=== PATIENT | male | born 1980 | race Caucasian/White ===

== ENCOUNTER 2020-09-21 22:08 | Emergency (ER) | payer OTHER ==
[2020-09-21 22:46] LABS: BASOPHILS # (AUTO) 0.1 10^3/uL (0.0-0.1); BASOPHILS % (AUTO) 0.8 %; EOSINOPHILS # (AUTO) 0.2 10^3/uL (0.0-0.7); EOSINOPHILS % (AUTO) 2.8 %; HCT - HEMATOCRIT 39.8 % (42.0-52.0); HGB - HEMOGLOBIN 13.4 g/dL (14.0-18.0); LYMPHOCYTES # (AUTO) 1.8 10^3/uL (1.5-3.5); LYMPHOCYTES % (AUTO) 29.3 %; MEAN CORPUSCULAR HEMOGLOBIN 30.4 pg (27.0-31.0); MEAN CORPUSCULAR HGB CONC 33.7 g/dL (32.0-36.0); MEAN CORPUSCULAR VOLUME 90.2 fL (80.0-94.0); MEAN PLATELET VOLUME 9.4 fL (7.4-11.4); MONOCYTES # (AUTO) 0.4 10^3/uL (0.0-1.0); MONOCYTES % (AUTO) 6.4 %; NEUTROPHILS # (AUTO) 3.7 10^3/uL (1.5-6.6); NEUTROPHILS % (AUTO) 60.4 %; PLT - PLATELET COUNT 192 10^3/uL (130-450); RED BLOOD COUNT 4.41 10^6/uL (4.70-6.10); RED CELL DISTRIBUTION WIDTH 12.6 % (12.0-15.0); VBG PCO2 48.7 mmHg (41-51); VBG PH 7.381 (7.31-7.41); WHITE BLOOD COUNT 6.1 x10^3/uL (4.8-10.8)
[2020-09-21 22:47] LABS: VBG BASE EXCESS 2.3 mmol/L (-2 - +2); VBG HCO3 28.2 mmol/L (23-28); VBG OXYGEN SATURATION 47.9 % (60-80); VBG PO2 25.4 mmHg (25-47); VBG TOTAL CO2 29.7 mmol/L (24-29)
[2020-09-21] MEDS ORDERED: CHERRY SYRUP 10 ML UDC PO ONE (22:52)
[2020-09-21] MEDS ORDERED: DEXAMETHASONE 10 MG/ML VIAL PO STA (22:52)
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
[2020-09-21 23:00] LABS: ALBUMIN 4.4 g/dL (3.2-5.5); ALBUMIN/GLOBULIN RATIO 1.7 (1.0-2.2); BILIRUBIN,TOTAL 0.8 mg/dL (0.2-1.0); CALCIUM 9.7 mg/dL (8.5-10.3); CREATININE 0.9 mg/dL (0.6-1.2); POTASSIUM 4.3 mmol/L (3.5-5.0)
[2020-09-21 23:24] LABS: BILIRUBIN,URINE NEGATIVE (NEGATIVE); GLUCOSE, URINE (UA) NEGATIVE (NEGATIVE); KETONES,URINE (UA) NEGATIVE (NEGATIVE); LEUKOCYTE ESTERASE, URINE NEGATIVE (NEGATIVE); NITRITE,URINE NEGATIVE (NEGATIVE); OCCULT BLOOD,URINE TRACE-LYSE (NEGATIVE); PROTEIN,URINE NEGATIVE (NEGATIVE); UROBILINOGEN,URINE 0.2 (NORMAL) E.U./dL (NORMAL)
[2020-09-21 23:26] LABS: CLARITY,URINE CLEAR (CLEAR)
[2020-09-22 02:05] VITALS: BP 107/58
--- NOTE | 2020-09-22 08:51 | CT Report ---
PROCEDURE: HEAD WO INDICATIONS: headache, barotrauma TECHNIQUE: Noncontrast 4.5 mm thick angled axial sections acquired from the foramen magnum to the vertex. For r adiation dose reduction, the following was used: automated exposure control, adjustment of mA and/or kV according to patient size. COMPARISON: None. FINDINGS: Image quality: Excellent. CSF spaces: Basal cisterns are patent. No extra-axial fluid collections. Ventricles are normal in size and shape. Brain: No midline shift. No intracranial masses or hemorrhage. Carter-white matter interface is norm al. Skull and face: Calvarium and visualized facial bones are intact, without suspicious lesions. Sinuses: Visualized sinuses and mastoids are clear. IMPRESSION: No acute intracranial process. Reviewed by: Levar Rivers MD on 09/22/2020 8:50 AM [facility] Approved by: Levar Rivers MD on 09/22/2020 8:50 AM [facility] Station ID: [id number]
== END 2020-09-22 02:15 | disposition home or self-care (01) ==
LOC: ED 22:08
DX: T70.3XXA Caisson disease [decompression sickness], initial encounter (principal); X58.XXXA Exposure to other specified factors, initial encounter; Y92.813 Airplane as the place of occurrence of the external cause; Y99.1 Military activity
CPT/HCPCS: 36415; 70450; 80053; 81003; 82803; 83690; 84484; 85025; 93005; 99284; 99285; A9270; 81001; 87086